=== PATIENT | male | born 1930 | race Caucasian/White ===

== ENCOUNTER → 2016-05-12 | Day surgery (SDC) | payer MEDICARE, BC ==
[2016-05-08 16:10] VITALS: BMI 21.2
[~2016-05-12] MED LIST: SIMETHICONE 40 MG/0.6 ML DROPS 2,000 MG/30 ML BOTTLE PO ONE
== END ==
LOC: ORWHC2ENDO 06:57
PROVIDERS: ATTEND Internal Medicine Gastroenterology
DX: D50.9 Iron deficiency anemia, unspecified (principal)
CPT/HCPCS: 91110

== ENCOUNTER 2018-02-02 10:58 | Day surgery (SDC) | payer MEDICARE, BC ==
[2018-01-29 09:21] VITALS: BMI 22.0
[~2018-02-02 10:58] MED LIST changes: +DEXAMETHASONE SOD PHOSPHATE 10 MG/ML 1 ML VIAL IV ONE; +HYDROmorphone 0.5 MG/0.5 ML SYRINGE IVP PRN; +LACTATED RINGERS 1,000 ML IV SCH; +LIDOCAINE 1% 20 ML VIAL (10MG/ML) FOR IV START INTRADERMA PRN; +ONDANSETRON 4 MG/2 ML VIAL IVP ONE; +SCOPOLAMINE 1.5MG/72HR PATCH TRANSDERM ONE; -SIMETHICONE 40 MG/0.6 ML DROPS 2,000 MG/30 ML BOTTLE PO ONE
[2018-02-02 11:37] VITALS: RESP 16; TEMP 97.8
[2018-02-02] MEDS ORDERED: PROPOFOL 10 MG/ML 20 ML VIAL IV ONE (12:03)
[2018-02-02] MEDS ORDERED: LIDOCAINE 1% INJ 10MG/ML (20 ML MDV) ONE (12:03)
[2018-02-02] MEDS ORDERED: fentaNYL (PF) 50 MCG/ML 2 ML AMP ONE (12:03)
[2018-02-02] MEDS ORDERED: LIDOCAINE 2% INJ 20 MG/ML SQ ONE ×2 (12:06→12:24)
[2018-02-02 12:53] LABS: Anisocytosis Slight; HCT 24.9 % (39.0-53.0); HGB 7.5 gm/dL (13.0-17.5); Hypochromasia Marked; MCH 29.3 pg (25.0-35.0); MCV 97.5 fL (80.0-100.0); Macrocytosis Slight; Mean Platelet Volume 10.3; Platelet Count 107 k/uL (150-450); Poikilocytosis Marked; RBC 2.55 m/uL (4.30-5.90); RDW 19.4 % (11.5-15.5)
[2018-02-02 12:54] VITALS: BP 141/76; PULSE 62
--- NOTE | 2018-02-02 12:57 | PCN ---
PROCEDURE NOTE PROCEDURE: Bone marrow aspirate and biopsy. DATE OF SERVICE: 02/02/2018 INDICATION: Persistent anemia. After obtaining consent from the patient, the procedure was performed in the endoscopy suite and anesthesia performed by Anesthesia Team. The patient was put in the left lateral decubitus position. The right posterior iliac crest was localized, skin was clinically prepped and cleansed with ChloraPrep, all sterile procedures were followed; 2 mL of 1% Xylocaine was used for local anesthetic. Jamshidi needle was inserted; 15 mL of aspirate and 1 cm core biopsy was obtained without any difficulties. Pressure applied afterwards. There was negligible blood loss. Patient tolerated the procedure very well without any immediate complications. MMODL / IJN: [id number] /
[2018-02-02 13:57] LABS: Metamyelocytes % 1 %; Myelocytes % 3 %; Neutrophils % (M) 48 %
[2018-02-02 13:58] LABS: Blast Cells # (M) 0.15 k/uL (0); Lymphocytes # (M) 0.68 k/uL (1.0-4.8); Metamyelocytes # (M) 0.02 k/uL (0); Monocytes # (M) 0.22 k/uL (0-1.0); Myelocytes # (M) 0.07 k/uL (0); Neutrophils # (M) 1.06 k/uL (1.3-7.7); Nucleated Red Blood Cells 22 /100 WBC (0-0); Total Cells Counted 100; WBC 2.2 k/uL (3.8-10.6)
[2018-02-02 13:59] LABS: Polychromasia Present
== END 2018-02-02 13:40 | disposition home or self-care (01) ==
LOC: OR 10:58
PROVIDERS: ATTEND Internal Medicine Hematology & Oncology
DX: D50.9 Iron deficiency anemia, unspecified (principal); I12.9 Hypertensive chronic kidney disease with stage 1 through stage 4 chronic kidney disease, or unspecified chronic kidney disease; N18.3 Chronic kidney disease, stage 3 (moderate); D63.1 Anemia in chronic kidney disease; M06.9 Rheumatoid arthritis, unspecified; D47.2 Monoclonal gammopathy; R00.1 Bradycardia, unspecified; G47.00 Insomnia, unspecified; K21.9 Gastro-esophageal reflux disease without esophagitis; E07.9 Disorder of thyroid, unspecified; Z85.46 Personal history of malignant neoplasm of prostate; Z92.3 Personal history of irradiation; Z79.82 Long term (current) use of aspirin; Z79.890 Hormone replacement therapy; Z79.899 Other long term (current) drug therapy; Z96.651 Presence of right artificial knee joint; Z87.891 Personal history of nicotine dependence
CPT/HCPCS: 85025; 38222; J2001 ×2; J3010; J2704